=== PATIENT | male | born 1975 | race Two or more races ===

== ENCOUNTER 2024-08-08 14:00 | Outpatient (AMB) | payer MEDICAID, SELFPAY ==
[2024-08-08 14:26] VITALS: BP 126/82; PULSE 98; RESP 18; TEMP 36.8; O2SAT 97; BMI 31.1
--- NOTE | 2024-08-08 14:26 | ORTHONT_ITS ---
Vital signs 08/08/24 14:26 Height 1.68 m Height Method Stated Weight 87.572 kg Weight Measurement Method Standing Scale BMI 31.1 BP 126/82 Blood Pressure Source Automatic Cuff Blood Pressure Location Right Upper Arm Position Sitting Respiration 18 Pulse 98 Pulse Source Monitor Temp 98.2 F Temp Source Temporal Artery Scan Pulse Oximetry (%) 97 Oxygen Delivery Method Room Air Med/Allergies Allergies & Medications Allergies No Known Drug Allergies Allergy (Verified 08/08/24 14:28) Medication Reconciliation celecoxib 100 mg capsule 100 mg PO BID 08/08/24 [History Confirmed 08/08/24] telmisartan 40 mg tablet 40 mg PO QDAY 08/08/24 [History Confirmed 08/08/24] Subjective Visit Visit for: new patient and knee Immunization / Flu Flu Vaccine in the Last 12 Months: No Flu Vaccine Exclusion Criteria: No Exclusion Criteria History of Present Illness Chief complaint: KNEE PAIN Date of injury / onset of symptoms: 4 MONTHS Patient states his knee pain began approx. 4 month ago while working, pain never subsided and gradually worsen. X-rays were done at [place] [facility]. Patient has had fluid drained and given two knee injections which didnt help. Elroy any physical therapy and is currently taking Celecoxib for pain. Personal History Occupation: [employer] Red flag PMH: none Pain Pain level (0-10): 9 Pain duration: ALL DAY Pain location: inside (medial), outside (lateral), anterior and posterior Pain quality: sharp Pain timing: increases with activity Associated signs & symptoms: numbness Ambulatory data Ambulatory device: cane Treatments Number of previous injections: 2 Improvement with previous injections: No Number of Physical Therapy sessions: 0 Improvement with PT: No Improvement with NSAIDS: n/a Review of Systems Review of Systems: All systems negative unless otherwise noted in HPI. Exam Exam Patient is in no acute distress and is cooperative with the examination today. Breathing is nonlabored. In no respiratory distress. Bilateral extremities were evaluated and demonstrates sensation intact to light touch. Palpable pedal pulses are present. No significant edema is present. Bilateral hips were examined. The patient has no pain with log roll of the hips. Internal rotation to 30 degrees and external rotation to 30 degrees is painless. Negative FADIR. The left knee was examined. The left knee is in [varus] alignment. Range of motion from [0-115] degrees. Knee is stable to varus and valgus as well as AP translation with <5mm. Patient has a [negative] McMurrays. There is [no] pain with patellofemoral compression and [no] crepitus noted. The knee is [tender] to palpation [medially]. The right knee was also examined. The right knee is in [varus] alignment. Range of motion from [0-120] degrees. Knee is stable to varus and valgus as well as AP translation with <5mm. Patient has a [negative] McMurrays. There is [no] pain with patellofemoral compression and [no] crepitus noted. The knee is [tender] to palpation [medially]. [facility] from [facility] demonstrate severe osteoarthritis of bilateral knees with varus deformity. Osteophytes are present Assessment and Plan Problem List (1) Degenerative arthritis of knee, bilateral: Status: Acute Plan: Patient is a pleasant 49-year-old male with bilateral knee pain and bilateral knee arthritis. The pain is worse on the right. He is failed conservative treatment occluding injections, anti-inflammatories. He is using a cane and has significant pain and difficulty walking. The pain is affecting his quality life and happiness. We will plan for staged total knee replacement to start on the right. We discussed weight loss in great detail and he is well optimized at this time The nature and purpose of the total knee replacement, alternative method(s) of treatment, the material risks involved, and the possibility of complications were fully explained to the patient. The patient does NOT have any of the following contraindications to TKA: - Active infection of the knee joint, OR - Active systemic bacteremia, OR - Active skin infection or open wound at surgical site, OR - Neuropathic arthritis, OR - Severe, rapidly progressive neurological disease, OR - Severe medical condition that makes risks of surgery outweigh the potential benefit The patient was told the most common risks and complications associated with a total knee replacement include, but are not limited to: blood clots in the leg, fatal pulmonary embolism, dislocation of the prosthesis, intraoperative and postoperative fractures of the femur or tibia, infection, failure of the prosthesis or grafting materials, complications from anesthesia, reactions to blood transfusions, postoperative leg length inequality, instability of the knee replacement, nerve damage or injury, vascular injury, delayed wound healing, infection, other injury or even . In addition, there are risks associated with anesthesia given during this operation. Also, the patient was told that after undergoing a total knee replacement there may still be persistent pain or disability. The patient was informed that the success of this operation in part depends upon the mechanical devices which are going to be implanted and that these devices can fail or malfunction, and may need to be repaired or replaced and there are no guarantees as to the longevity of this device or its parts and that it or its parts could fail prematurely. The patient was also notified that during the course of surgery, there may be a need to use bone graft from donors, and that any bone graft used will be carefully screened for communicable diseases, including AIDS, hepatitis, Jonathan-Creutzfeldt, or other diseases, but despite the screening procedures, there is a small chance that they could contract one of these diseases. Finally, the patient was asked to follow completely and fully with all advice and recommended treatments, and that recovery and ultimate outcome are affected by their compliance with recommended treatment. We discussed the risks, benefits and treatment alternatives, and the patient is interested in proceeding with surgery. We will try to set this up as expeditiously as possible. Office Procedures GNS Level of Care Nursing/Assessment Patient Status: Initial/New Patient Nursing Assessment/Reassesment: Medication Reconciliation, Update PMH in EMR and Vital Signs Coordination of Care: Complex Care and Chronic Disease 1-5, Education Complex Pt/Fam, Consent,records obtained, informed consent, Results/Orders obtained and Staff clarify orders Special Needs: Language special needs New Patient Charge New Patient Point Assignment: 1094 New Patient Point Charge: LEMON GROWER Level 3 ([id number]) Past Medical History Past Medical History Have you ever been diagnosed with any of the following: Cardiology Problems Hypertension: Yes Respiratory Problems Smoking: No Smoking Exposure: No
== END 2024-08-08 14:46 | disposition home or self-care (01) ==
PROVIDERS: PCP Family Medicine; Referring Provider Family Medicine; Supervising Provider Orthopaedic Surgery Adult Reconstructive Orthopaedic Surgery; Visit Provider Orthopaedic Surgery Adult Reconstructive Orthopaedic Surgery
DX: M17.0 Bilateral primary osteoarthritis of knee (principal); M25.562 Pain in left knee; M25.561 Pain in right knee; I10 Essential (primary) hypertension
CPT/HCPCS: 99203; G0463

== ENCOUNTER → 2024-09-05 | Outpatient (CLI) | payer MEDICAID, SELFPAY ==
--- NOTE | 2024-09-05 13:30 | XR_ITS ---
Examination: CT right lower extremity, without contrast. 2-D sagittal reconstructions. 2-D coronal reconstructions. 3-D reconstructions. Date and time of exam:September 05, 2024 1352 hours INDICATIONS: Chronic knee pain years CTDI: vol (mGy):26.7 DLP: (mGycm):951 Technique: Multiple 1.25 mm axial sections of the right lower extremity without intravenous contrast have been obtained. 2-D sagittal and coronal reconstructions have been obtained. 3-D reconstructions have been obtained. Low dose protocols were performed. One or more of the following dose reduction techniques were used; automated exposure control, adjustment of the mA and/or KV according to patient size, use of iterative reconstruction technique. Findings: Moderate osteopenia Mild to moderate narrowing right hip joint, no fracture Advanced right knee tricompartment osteoarthritis, severe narrowing medial joint space No fracture IMPRESSION: Advanced right knee tricompartment osteoarthritis, severe narrowing medial joint space
== END | disposition home or self-care (01) ==
LOC: CCTX 13:26
PROVIDERS: PCP Family Medicine; Referring Provider Orthopaedic Surgery Adult Reconstructive Orthopaedic Surgery; Visit Provider Orthopaedic Surgery Adult Reconstructive Orthopaedic Surgery
DX: M17.11 Unilateral primary osteoarthritis, right knee (principal); M25.861 Other specified joint disorders, right knee
CPT/HCPCS: 73700

== ENCOUNTER 2024-09-16 13:32 | Outpatient (AMB) | payer MEDICAID, SELFPAY ==
[2024-09-16 13:59] VITALS: BP 126/85; PULSE 77; RESP 18; TEMP 36.7; O2SAT 96; BMI 30.7
--- NOTE | 2024-09-16 13:59 | PD.ORTHCLVIS ---
Vital signs 09/16/24 13:59 Height 1.68 m Height Method Stated Weight 86.296 kg Weight Measurement Method Standing Scale BMI 30.7 BP 126/85 H Blood Pressure Source Automatic Cuff Blood Pressure Location Right Upper Arm Position Sitting Respiration 18 Pulse 77 Pulse Source Monitor Temp 98.1 F Temp Source Temporal Artery Scan Pulse Oximetry (%) 96 Oxygen Delivery Method Room Air Med/Allergies Allergies & Medications Allergies No Known Drug Allergies Allergy (Verified 09/16/24 14:01) Medication Reconciliation celecoxib 100 mg capsule 100 mg PO BID 08/08/24 [History Confirmed 09/16/24] telmisartan 40 mg tablet 40 mg PO QDAY 08/08/24 [History Confirmed 09/16/24] Exam Exam Patient is in no acute distress and is cooperative with the examination today. Breathing is nonlabored. In no respiratory distress. Bilateral extremities were evaluated and demonstrates sensation intact to light touch. Palpable pedal pulses are present. No significant edema is present. Bilateral hips were examined. The patient has no pain with log roll of the hips. Internal rotation to 30 degrees and external rotation to 30 degrees is painless. Negative FADIR. The left knee was examined. The left knee is in [varus] alignment. Range of motion from [0-115] degrees. Knee is stable to varus and valgus as well as AP translation with <5mm. Patient has a [negative] McMurrays. There is [no] pain with patellofemoral compression and [no] crepitus noted. The knee is [tender] to palpation [medially]. The right knee was also examined. The right knee is in [varus] alignment. Range of motion from [0-120] degrees. Knee is stable to varus and valgus as well as AP translation with <5mm. Patient has a [negative] McMurrays. There is [no] pain with patellofemoral compression and [no] crepitus noted. The knee is [tender] to palpation [medially]. X-rays from [facility] demonstrate severe osteoarthritis of bilateral knees with varus deformity. Osteophytes are present Assessment and Plan Problem List (1) Degenerative arthritis of knee, bilateral: Status: Acute Plan: Patient is a pleasant 49-year-old male with bilateral knee pain and bilateral knee arthritis. The pain is worse on the right. He is failed conservative treatment occluding injections, anti-inflammatories. He is using a cane and has significant pain and difficulty walking. The pain is affecting his quality life and happiness. We will plan for staged total knee replacement to start on the right. We discussed weight loss in great detail and he is well optimized at this time The nature and purpose of the total knee replacement, alternative method(s) of treatment, the material risks involved, and the possibility of complications were fully explained to the patient. The patient does NOT have any of the following contraindications to TKA: - Active infection of the knee joint, OR - Active systemic bacteremia, OR - Active skin infection or open wound at surgical site, OR - Neuropathic arthritis, OR - Severe, rapidly progressive neurological disease, OR - Severe medical condition that makes risks of surgery outweigh the potential benefit The patient was told the most common risks and complications associated with a total knee replacement include, but are not limited to: blood clots in the leg, fatal pulmonary embolism, dislocation of the prosthesis, intraoperative and postoperative fractures of the femur or tibia, infection, failure of the prosthesis or grafting materials, complications from anesthesia, reactions to blood transfusions, postoperative leg length inequality, instability of the knee replacement, nerve damage or injury, vascular injury, delayed wound healing, infection, other injury or even . In addition, there are risks associated with anesthesia given during this operation. Also, the patient was told that after undergoing a total knee replacement there may still be persistent pain or disability. The patient was informed that the success of this operation in part depends upon the mechanical devices which are going to be implanted and that these devices can fail or malfunction, and may need to be repaired or replaced and there are no guarantees as to the longevity of this device or its parts and that it or its parts could fail prematurely. The patient was also notified that during the course of surgery, there may be a need to use bone graft from donors, and that any bone graft used will be carefully screened for communicable diseases, including AIDS, hepatitis, Jonathan-Creutzfeldt, or other diseases, but despite the screening procedures, there is a small chance that they could contract one of these diseases. Finally, the patient was asked to follow completely and fully with all advice and recommended treatments, and that recovery and ultimate outcome are affected by their compliance with recommended treatment. We discussed the risks, benefits and treatment alternatives, and the patient is interested in proceeding with surgery. We will try to set this up as expeditiously as possible. Office Procedures GNS Level of Care Nursing/Assessment Patient Status: Established Patient Nursing Assessment/Reassesment: Medication Reconciliation, Update PMH in EMR and Vital Signs Coordination of Care: Complex Care and Chronic Disease 1-5, Consent,records obtained, informed consent, Education Simp Pt/Fam, Results/Orders obtained and Staff clarify orders Established Patient Charge Established Patient Point Assignment: 90 Established Patient Point Charge: EP Level 3 (80-115) MA Intake Visit Data Collection New Patient or Established: Established Patient (seen at [facility] within 3 years) Seen by Clinical Staff ONLY (RN/MA): No Behavioral School Counselors Required: Yes Do You Feel Safe at Home: Yes Authorities Contacted: N/A Questionairres Past Medical History Past Medical History Have you ever been diagnosed with any of the following: Cardiology Problems Hypertension: Yes Respiratory Problems Smoking: No Smoking Exposure: No Subjective Immunization / Flu Flu Vaccine in the Last 12 Months: No Flu Vaccine Exclusion Criteria: Refused by Patient History of Present Illness Chief complaint: Bilateral knee pain Patient states his knee pain began approx. 4 month ago while working, pain never subsided and gradually worsened. X-rays were done at [facility]. Patient has had fluid drained and given two knee injections which didnt help. He Elroy any physical therapy and is currently taking Celecoxib for pain. He reports the pain continues to persist and he is using a cane. The pain is affecting his quality life and happiness Review of Systems Review of Systems: All systems negative unless otherwise noted in HPI.
== END 2024-09-16 14:21 | disposition home or self-care (01) ==
LOC: HODSRG 13:32
PROVIDERS: PCP Family Medicine; Referring Provider Family Medicine; Supervising Provider Orthopaedic Surgery Adult Reconstructive Orthopaedic Surgery; Visit Provider Orthopaedic Surgery Adult Reconstructive Orthopaedic Surgery
DX: M17.0 Bilateral primary osteoarthritis of knee (principal); M25.562 Pain in left knee; M25.561 Pain in right knee; I10 Essential (primary) hypertension
CPT/HCPCS: 99213; G0463

== ENCOUNTER 2024-09-22 08:30 | Day surgery (SDC) | payer MEDICAID, SELFPAY ==
--- NOTE | 2024-09-19 11:32 | EKG_ITS ---
[facility] Test Date: 2024-09-19 Pat Name: LULU MARCELINO Department: Room: - Gender: Male [employer] Operator: MARTHA : 1975 Requested By: Moses Stanley Order Number: [id number] Reading MD: Moses Stanley Measurements Intervals [place] Rate: 66 P: 25 MI: 147 QRS: -26 QRSD: 101 T: 29 QT: 361 QTc: 380 Interpretive Statements SINUS RHYTHM WITH SINUS ARRHYTHMIA BORDERLINE LEFT AXIS DEVIATION NONSPECIFIC T-WAVE ABNORMALITY No previous ECG available for comparison /store/S0/[id number]/[id number].pdf
[2024-09-19 13:16] LABS: Basophils # (Auto) 0.1 Thou/mm3 (0.0-0.2); Basophils % (Auto) 1 % (0-2.5); Eosinophils # (Auto) 0.3 Thou/mm3 (0.0-0.5); Eosinophils % (Auto) 3 % (0-10); Immature Granulocytes % (Auto) 0 % (0-0); Immature Granulocytes Auto 0.02 Thou/mm3 (0.00-0.00); Lymphocytes # (Auto) 3.1 Thou/mm3 (1.0-4.8); Lymphocytes % (Auto) 36 % (10-50); Mean Corpuscular Hemoglobin 27.4 pg (25.0-35.0); Mean Corpuscular Volume 86 fL (80-100); Monocytes # (Auto) 0.5 Thou/mm3 (0.0-0.8); Monocytes % (Auto) 6 % (0-12); Neutrophils # (Auto) 4.6 Thou/mm3 (1.8-7.7); Neutrophils % (Auto) 54 % (37-80); Nucleated Red Blood Cell % 0 /100 WBC (0); Platelet Count 257 Thou/mm3 (140-440); RDW Standard Deviation 43.1 fL (35.1-43.9); Red Blood Count 5.85 Miln/mm3 (4.50-5.90); White Blood Count 8.5 Thou/mm3 (3.8-10.6)
[2024-09-19 13:30] LABS: Partial Thromboplastin Time 25.6 Seconds (22.0-36.0); Prothrombin Time 10.8 Seconds (9.0-12.2)
[2024-09-19 13:39] LABS: Alanine Aminotransferase 17 U/L (10-49); Albumin, Serum 4.8 gm/dL (3.5-5.0); Albumin/Globulin Ratio 1.9 (1.2-2.2); Alkaline Phosphatase 157 U/L (46-116); Anion Gap 9 (7-16); Aspartate Amino Transferase 10 U/L (0-34); BUN/Creatinine Ratio 14 Ratio (12-20); Bilirubin,Total 0.7 mg/dL (0.3-1.2); Blood Urea Nitrogen 14 mg/dL (9-23); Calcium 9.8 mg/dL (8.3-10.6); Calcium (Corrected) 9.8 mg/dL (8.5-10.1); Carbon Dioxide 28.7 mMol/L (20.0-31.0); Chloride 103 mMol/L (98-107); Globulin 2.5 gm/dL (2.3-3.5); Glucose 153 mg/dL (74-106); Osmolality,Calculated 284 (275-295); Sodium 141 mMol/L (136-145); Total Protein 7.3 gm/dL (5.7-8.2); eGFR > 60 See Note
[2024-09-22] VITALS (11 sets, daily range): BP systolic 96–122; BP diastolic 60–84; PULSE 65–91; RESP 15–20; TEMP 36.1–36.4; O2SAT 96–100; BMI 30.2; BMI 15.0
[2024-09-22] MEDS: PREGABALIN 75 MG CAPSULE PO (09:05)
[2024-09-22] MEDS: ACETAMINOPHEN 325 MG TABLET 650 MG PO (09:05)
[2024-09-22] MEDS: MELOXICAM 7.5 MG TABLET PO (09:05)
[2024-09-22] MEDS: RINGERS LACTATED 1000 ML 1,000 ML 20 ML IV (09:06)
--- NOTE | 2024-09-22 13:24 | ESOP_ITS ---
Date of Procedure 09/22/24 Pre Op Diagnosis right knee osteoarthritis Post Op Diagnosis right knee osteoarthritis Procedure right total knee replacement cementless Findings full thickness cartilage loss and osteophytes Procedure Description Indication: The patient is a 49 year old who has a long history of right knee pain. X-rays show degenerative arthritis involving the knee. Over the past several years the patient has had increasing pain, progressive limitation in function. He has failed conservative measures including activity modification, physical therapy, injections, anti-inflammatories, and assistive devices. After a lengthy discussion of the risks and benefits, the patient presents now for total knee replacement. The nature and purpose of the total knee replacement, alternative method(s) of treatment, the material risks involved, and the possibility of complications were fully explained to the patient. The patient was told the most common risks and complications associated with a total knee replacement include, but are not limited to blood clots in the leg, fatal pulmonary embolism, dislocation of the prosthesis, intraoperative and postoperative fractures of the femur or tibia, infection, failure of the prosthesis or grafting materials, complications from anesthesia, reactions to blood transfusions, postoperative leg length inequality, instability of the knee replacement, nerve damage or injury, vascular injury, delayed wound healing, infections, other injury or even . In addition, there are risks associated with anesthesia given during this operation, temporary or permanent numbness on the skin lateral to the incision can be a complication unique to total knee surgery, and kneeling can be painful after knee replacement surgery. Also, the patient was told that after undergoing a total knee replacement there may still be pain or disability. We discussed with the patient that we will be using a robot-assisted technology. We discussed that there is a possibility of converting to manual instrumentation. The patient was informed that the success of this operation in part depends upon the mechanical devices which are going to be implanted and that these devices can fail or malfunction, and may need to be repaired or replaced and there are no guarantees as to the longevity of this device or its part and that it or its parts could fail prematurely. Finally, the patient was asked to follow completely and fully with all advice and recommended treatments, and that recovery and ultimate outcome are affected by their compliance with recommended treatment. Surgical technique: Patient was marked and consented in the pre-operative area. The patient was brought to the operating room and placed on the operating table in a supine position. Prior to positioning, a timeout procedure was performed between the surgeon, the anesthesiologist, and the nursing staff where the patient and the operative side were identified and confirmed. After adequate general anesthetic was obtained, the right lower extremity was prepped and draped in the usual sterile fashion. A weight based dose of Cefazolin were administered within 1 hour prior to incision. The robot was preregistered and calirated before the incision. The extremity was exsanguinated with an esmarch badge and tourniquet inflated to 250mmHg. A midline incision was made. A median parapatellar arthrotomy was made. The patella was subluxed laterally. A medial release was performed to expose the medial tibia. His femoral and tibial pins were placed through an intra incisional manner for both cases. Every effort was made to ensure that the distalmost aspect of the pin was hung in the second cortex. The arrays were then tightened several times to ensure that it was fixed for the remainder of the case. Both femoral and tibial checkpoints were then placed. We then went through the registration process of the bone. We then assessed the knee deformity and attempted to correct it. We also used the robot to aid in judging laxity in both extension and flexion. Final based on laxity and alignment we changed the preoperative assessment to obtain proper proper implant positioning and to correct deformity. Attention was then placed to the tibia. We made a tibial cut using the robot ensuring that both the MCL and the patella tendon were protected with retractors. We then went to the femur and made the posterior cut followed by the anterior cut and the anterior chamfer. The bone was then removed and we made a distal femur cut and a posterior chamfer cut. We verified all cuts. A trial reduction was performed with a size 5 femoral component and a size 5 keeled tibial component. The patella tracked centrally, and no lateral retinacular release was necessary. The trial implants were removed. The arrays, pins, and checkpoints were all removed. We performed a verification that all pins were removed. The cut bone surfaces were lavaged. A size 5 right femoral component, a size 5 keeled tibial component were impacted into position. The knee was felt to be well balanced in the sagittal and coronal plane. The final 5x13 mm cruciate- substituting articular insert was impacted into the tibial tray. The knee was brought out to full extension, flexed up to 120 degrees. It was stable to varus and valgus stress and appropriately balanced in flexion and extension. The wounds were copiously irrigated following deflation of tourniquet. The medial retinaculum was reapproximated with #1 vicryl and quill. The subcutaneous tissues were closed with 0 and 2-0 interrupted Vicryl. The skin was closed with 3-0 Monofilament V loc suture. A sterile dressing was applied. The patient was transferred to a bed and brought to recovery in stable condition. The patient tolerated the procedure well. There were no intraoperative complications. Sponge and needle counts were correct times 2. As the attending surgeon, Kerry rob I was present and performed the entire operation. Grafts/Implants Size 5 CR Femur Size 5 Tibia 13mm poly CS Anesthesia none Implants diana triathlon Pathology / specimen None Pathology comment: none Estimated Blood Loss 150 Condition Stable Disposition same day Surgeon Clyde Plaza MD Surgical Staff Operation Date: 09/22/24 13:15 Case Staff Anesthesiologist: Tim Bains RN First Assistant: Dorothy Lundy
--- NOTE | 2024-09-22 13:29 | XR_ITS ---
Examination: Right knee 2 views Technique one AP lateral right knee 2 views Exam date and time: September 22, 2024 1441 hours INDICATIONS: Postop knee replacement today. FINDINGS: Moderate osteopenia Total right knee arthroplasty. Satisfactory alignment No fracture IMPRESSION: Total right knee arthroplasty with satisfactory alignment
--- NOTE | 2024-09-22 13:55 | SUR.PHASEI ---
1355 Patient arrived to recovery resting comfortably in [facility], drowsy and able to arouse with verbal prompting, on oxygen 6L via oxy mask, breathing unlabored, vital signs stable, denies pain, dressing intact to right knee; prineo, abd, webril, yuval wraps, no bleeding noted, lung sounds clear upon auscultation, bilateral dorsalis pedis pulses present when palpated, patient has good circulation to right lower extremity; skin is warm to touch and skin is normal color for patient, report received from Daisy HERRERA and Dr. Bains
[2024-09-22] MEDS: HYDROmorphone INJ 2 MG/ML VIAL 0.4 MG IV (14:19)
[2024-09-22] MEDS: ACETAMINOPHEN IVPB 1,000 MG/100 ML VIAL 250 MG IV (14:21)
--- NOTE | 2024-09-22 14:35 | SUR.PHASEII ---
1788 patient ate a jello, tolerated well
[2024-09-22] MEDS: oxyCODONE HCL 5 MG IR TAB PO (14:38)
--- NOTE | 2024-09-22 14:47 | SUR.PHASEII ---
1447 XRAY complete per MD order
--- NOTE | 2024-09-22 14:50 | SUR.PHASEII ---
patients at bedside with patient
--- NOTE | 2024-09-22 15:27 | SUR.PHASEII ---
1527 Patient cleared by physical therapist Koki to proceed with discharge
--- NOTE | 2024-09-22 16:04 | SUR.PHASEII ---
1604 Patient meets discharge criteria from recovery, awake and alert, breathing unlabored, vital signs stable, per patient his pain is tolerable-give pain pill, dressing intact; no bleeding noted, patient drinking water; denies nausea, patient assisted with dressing into his clothing by his , discharge instructions given with the assistance of the telephone appeals court associate justice Pino ID#[id number] to patient and patients daughter/, daughter signed discharge instructions. Patient given all his belongings prior to discharge, transported via wheelchair and left in a private vehicle.
--- NOTE | 2024-09-23 14:27 | ESPR_ITS ---
Addendum Progress Note Addendum Date of report being addended: 09/23/24 Narrative: Mustapha is a 49-year-old male who is under my care. He underwent surgery on 09/22/2024. Please excuse his daughter and her kids from school from 09/22/2024- 09/26/2024 due to his surgery.
== END 2024-09-22 16:04 | disposition home or self-care (01) ==
PROVIDERS: Anesthesiology; PCP Family Medicine; Referring Provider Orthopaedic Surgery Adult Reconstructive Orthopaedic Surgery; Visit Provider Orthopaedic Surgery Adult Reconstructive Orthopaedic Surgery
PROC: (CPT 27447; principal; 2024-09-22 13:00)
DX: M17.11 Unilateral primary osteoarthritis, right knee (principal); Z01.810 Encounter for preprocedural cardiovascular examination
CPT/HCPCS: 27447; 20985; 36415; 73560; 80053; 85025; 85610; 85730; 93005; J0131; J0171; J0690; J1100; J1885; J2250; J2405; J2704; J2795; J3010; J3490; J7120; A9270

== ENCOUNTER 2024-10-07 10:15 | Outpatient (AMB) | payer MEDICAID, SELFPAY ==
--- NOTE | 2024-10-07 10:26 | ORTHONT_ITS ---
Vital signs 10/07/24 10:27 Height 1.68 m Height Method Stated Weight 84.623 kg Weight Measurement Method Standing Scale BMI 29.9 BP 117/74 Blood Pressure Source Automatic Cuff Blood Pressure Location Left Upper Arm Position Sitting Respiration 18 Pulse 80 Pulse Source Monitor Temp 97.5 F Temp Source Temporal Artery Scan Pulse Oximetry (%) 92 L Oxygen Delivery Method Room Air Med/Allergies Allergies & Medications Allergies No Known Drug Allergies Allergy (Verified 10/07/24 10:27) Medication Reconciliation celecoxib 100 mg capsule 100 mg PO BID PRN Pain 08/08/24 [History Confirmed 0 10/07/24] telmisartan 40 mg tablet 40 mg PO QDAY 08/08/24 [History Confirmed 10/07/24] dapagliflozin propanediol 10 mg tablet (Farxiga) 10 mg PO QDAY 09/19/24 [History Confirmed 10/07/24] esomeprazole magnesium 20 mg capsule,delayed release (Nexium) 20 mg PO QDAY 09/19/24 [History Confirmed 10/07/24] hydroxyzine HCl 10 mg tablet 10 mg PO HS PRN Insomnia 09/19/24 [History Confirmed 10/07/24] acetaminophen 500 mg tablet (Acetaminophen Extra Strength) 1,000 mg (2 x 500 mg) PO Q6H PRN pain #90 tabs 09/22/24 [Rx Confirmed 10/07/24] aspirin 81 mg tablet,delayed release 81 mg PO BID #60 tabs 09/22/24 [Rx Confirmed 10/07/24] doxycycline hyclate 100 mg tablet 100 mg PO BID #14 tabs 09/22/24 [Rx Confirmed 10/07/24] gabapentin 300 mg capsule 300 mg PO .qhs #30 caps 09/22/24 [Rx Confirmed 10/07/24] oxycodone 5 mg tablet 5 mg PO Q6H PRN pain #28 tabs 09/22/24 [Rx Confirmed 10/07/24] sennosides 8.6 mg-docusate sodium 50 mg tablet (Senna-S) 1 tab-cap PO QDAY #30 tabs 09/22/24 [Rx Confirmed 10/07/24] Exam Exam Patient is in no acute distress and is cooperative with the examination today. Breathing is nonlabored. In no respiratory distress. Bilateral extremities were evaluated and demonstrates sensation intact to light touch. Palpable pedal pulses are present. No significant edema is present. Bilateral hips were examined. The patient has no pain with log roll of the hips. Internal rotation to 30 degrees and external rotation to 30 degrees is painless. Negative FADIR. The left knee was examined. The left knee is in [varus] alignment. Range of motion from [0-115] degrees. Knee is stable to varus and valgus as well as AP translation with <5mm. Patient has a [negative] McMurrays. There is [no] pain with patellofemoral compression and [no] crepitus noted. The knee is [tender] to palpation [medially]. Right knee incision is c/d/i. ROM is 0-100 Assessment and Plan Problem List (1) Degenerative arthritis of knee, bilateral: Status: Acute Plan: Patient is a pleasant 49-year-old male with bilateral knee pain and bilateral knee arthritis. He is doing well status post right total knee replacement. He has minimal pain but is doing well Office Procedures GNS Level of Care Nursing/Assessment Patient Status: Established Patient Nursing Assessment/Reassesment: Medication Reconciliation, Update PMH in EMR and Vital Signs Coordination of Care: Complex Care and Chronic Disease 1-5, Education Complex Pt/Fam, Consent,records obtained, informed consent, Results/Orders obtained and Staff clarify orders Special Needs: Language special needs Established Patient Charge Established Patient Point Assignment: 95 Established Patient Point Charge: EP Level 3 (80-115) MA Intake Visit Data Collection New Patient or Established: Established Patient (seen at [facility] within 3 years) Reason for Visit:: 2 WEEK R TKA Seen by Clinical Staff ONLY (RN/MA): No Nursing Information Systems Coordinator Required: Yes PCP or OBGYN visit in last 3 months: Yes Hx Now: No Do You Feel Safe at Home: Yes Authorities Contacted: N/A Questionairres Past Medical History Past Medical History Have you ever been diagnosed with any of the following: Neurological Problems Seizures: No Cardiology Problems Hypercholesterolemia: Yes Congestive Heart Failure: No Edema: Yes (knees) Hypertension: Yes Respiratory Problems Chronic Obstructive Pulmonary Disease (COPD): No Smoking: No Smoking Exposure: No Stomache/Intestinal Problems Hepatitis: No Genital/Urinary Problems Renal Disease: No Musculoskeletal Problems Arthritis: Yes Fractures: Yes (right hand) Endocrine Problems Diabetes Mellitus Type 1: No Diabetes Mellitus Type 2: No Psychologic Problems Anxiety: Yes Other Problems Hospitalization: No Shingles: No Blood Transfusions: No Blood Transfusion Reaction: No Anesthesia Reactions: No Chicken Pox: Yes Measles: Yes Cancer: No Subjective Visit Visit for: follow up visit and knee Immunization / Flu Flu Vaccine in the Last 12 Months: No Flu Vaccine Exclusion Criteria: No Exclusion Criteria History of Present Illness Chief complaint: r tka Patient is doing well postop. He is 2 weeks postop. Pain Pain level (0-10): 3 Pain duration: ON AND OFF Pain location: inside (medial), outside (lateral), anterior and posterior Pain quality: sharp and aching Pain timing: increases with activity Associated signs & symptoms: none Ambulatory data Ambulatory device: walker Treatments Improvement with previous injections: No Improvement with PT: No Improvement with NSAIDS: no Review of Systems Review of Systems: All systems negative unless otherwise noted in HPI.
[2024-10-07 10:27] VITALS: BP 117/74; PULSE 80; RESP 18; TEMP 36.4; O2SAT 92; BMI 29.9
== END 2024-10-07 10:38 | disposition home or self-care (01) ==
LOC: HODSRG 10:15
PROVIDERS: PCP Family Medicine; Referring Provider Family Medicine; Supervising Provider Orthopaedic Surgery Adult Reconstructive Orthopaedic Surgery; Visit Provider Orthopaedic Surgery Adult Reconstructive Orthopaedic Surgery
DX: M17.0 Bilateral primary osteoarthritis of knee (principal); M25.562 Pain in left knee; M25.561 Pain in right knee; Z96.651 Presence of right artificial knee joint; I10 Essential (primary) hypertension; E78.00 Pure hypercholesterolemia, unspecified
CPT/HCPCS: 99213; G0463

== ENCOUNTER 2024-11-04 10:10 | Outpatient (AMB) | payer MEDICAID, SELFPAY ==
--- NOTE | 2024-11-04 10:45 | ORTHONT_ITS ---
Vital signs 11/04/24 10:46 Height 1.68 m Height Method Stated Weight 82.724 kg Weight Measurement Method Standing Scale BMI 29.2 BP 130/81 Blood Pressure Source Automatic Cuff Blood Pressure Location Right Upper Arm Position Sitting Respiration 18 Pulse 68 Pulse Source Monitor Temp 97.5 F Temp Source Temporal Artery Scan Pulse Oximetry (%) 98 Oxygen Delivery Method Room Air Med/Allergies Allergies & Medications Allergies No Known Drug Allergies Allergy (Verified 11/04/24 10:47) Medication Reconciliation celecoxib 100 mg capsule 100 mg PO BID PRN Pain 08/08/24 [History Confirmed ] telmisartan 40 mg tablet 40 mg PO QDAY 08/08/24 [History Confirmed 11/04/24] dapagliflozin propanediol 10 mg tablet (Farxiga) 10 mg PO QDAY 09/19/24 [History Confirmed 11/04/24] esomeprazole magnesium 20 mg capsule,delayed release (Nexium) 20 mg PO QDAY 09/19/24 [History Confirmed 11/04/24] hydroxyzine HCl 10 mg tablet 10 mg PO HS PRN Insomnia 09/19/24 [History Confirmed 11/04/24] acetaminophen 500 mg tablet (Acetaminophen Extra Strength) 1,000 mg (2 x 500 mg) PO Q6H PRN pain #90 tabs 09/22/24 [Rx Confirmed 11/04/24] aspirin 81 mg tablet,delayed release 81 mg PO BID #60 tabs 09/22/24 [Rx Confirmed 11/04/24] doxycycline hyclate 100 mg tablet 100 mg PO BID #14 tabs 09/22/24 [Rx Confirmed 11/04/24] gabapentin 300 mg capsule 300 mg PO .qhs #30 caps 09/22/24 [Rx Confirmed 11/04/24] oxycodone 5 mg tablet 5 mg PO Q6H PRN pain #28 tabs 09/22/24 [Rx Confirmed 11/04/24] sennosides 8.6 mg-docusate sodium 50 mg tablet (Senna-S) 1 tab-cap PO QDAY #30 tabs 09/22/24 [Rx Confirmed 11/04/24] Exam Exam Patient is in no acute distress and is cooperative with the examination today. Breathing is nonlabored. In no respiratory distress. Bilateral extremities were evaluated and demonstrates sensation intact to light touch. Palpable pedal pulses are present. No significant edema is present. Bilateral hips were examined. The patient has no pain with log roll of the hips. Internal rotation to 30 degrees and external rotation to 30 degrees is painless. Negative FADIR. The left knee was examined. The left knee is in [varus] alignment. Range of motion from [0-115] degrees. Knee is stable to varus and valgus as well as AP translation with <5mm. Patient has a [negative] McMurrays. There is [no] pain with patellofemoral compression and [no] crepitus noted. The knee is [tender] to palpation [medially]. Right knee incision is c/d/i. ROM is 0-100 Assessment and Plan Problem List (1) Degenerative arthritis of knee, bilateral: Status: Acute Plan: Patient is a pleasant 49-year-old male with bilateral knee pain and bilateral knee arthritis. He is doing well status post right total knee replacement. He has minimal pain but is doing well Office Procedures GNS Level of Care Nursing/Assessment Patient Status: Established Patient Nursing Assessment/Reassesment: Medication Reconciliation, Update PMH in EMR and Vital Signs Coordination of Care: Complex Care and Chronic Disease 1-5, Education Complex Pt/Fam, Consent,records obtained, informed consent, Results/Orders obtained and Staff clarify orders Special Needs: Language special needs Established Patient Charge Established Patient Point Assignment: 95 Established Patient Point Charge: EP Level 3 (80-115) MA Intake Visit Data Collection New Patient or Established: Established Patient (seen at [facility] within 3 years) Reason for Visit:: 6 WK POST OP TKA Seen by Clinical Staff ONLY (RN/MA): No Verbal consent obtained for Telemed visit?: No Manager Supply Chain Planning Required: Yes PCP or OBGYN visit in last 3 months: Yes Hx Now: No Do You Feel Safe at Home: Yes Authorities Contacted: N/A Questionairres Past Medical History Past Medical History Have you ever been diagnosed with any of the following: Neurological Problems Seizures: No Cardiology Problems Hypercholesterolemia: Yes Congestive Heart Failure: No Edema: Yes (knees) Hypertension: Yes Respiratory Problems Chronic Obstructive Pulmonary Disease (COPD): No Smoking: No Smoking Exposure: No Stomache/Intestinal Problems Hepatitis: No Genital/Urinary Problems Renal Disease: No Musculoskeletal Problems Arthritis: Yes Fractures: Yes (right hand) Endocrine Problems Diabetes Mellitus Type 1: No Diabetes Mellitus Type 2: No Psychologic Problems Anxiety: Yes Other Problems Hospitalization: No Shingles: No Blood Transfusions: No Blood Transfusion Reaction: No Anesthesia Reactions: No Chicken Pox: Yes Measles: Yes Cancer: No Subjective Visit Visit for: post op #2 and knee Immunization / Flu Flu Vaccine in the Last 12 Months: No Flu Vaccine Exclusion Criteria: No Exclusion Criteria History of Present Illness Chief complaint: 6 WK POST OP TKA Patient is doing well postop. He is doing well 6 weeks postop. Pain Pain level (0-10): 0 Pain duration: ON AND OFF Pain location: inside (medial), outside (lateral), anterior and posterior Pain quality: sharp and aching Pain timing: increases with activity Associated signs & symptoms: none Ambulatory data Ambulatory device: cane Treatments Improvement with previous injections: No Improvement with PT: No Improvement with NSAIDS: no Review of Systems Review of Systems: All systems negative unless otherwise noted in HPI.
[2024-11-04 10:46] VITALS: BP 130/81; PULSE 68; RESP 18; TEMP 36.4; O2SAT 98; BMI 29.2
== END 2024-11-04 11:14 | disposition home or self-care (01) ==
LOC: HODSRG 10:10
PROVIDERS: PCP Family Medicine; Referring Provider Family Medicine; Supervising Provider Orthopaedic Surgery Adult Reconstructive Orthopaedic Surgery; Visit Provider Orthopaedic Surgery Adult Reconstructive Orthopaedic Surgery
DX: M17.0 Bilateral primary osteoarthritis of knee (principal); M25.562 Pain in left knee; M25.561 Pain in right knee; Z96.651 Presence of right artificial knee joint; I10 Essential (primary) hypertension; E78.00 Pure hypercholesterolemia, unspecified
CPT/HCPCS: 99213; G0463

== ENCOUNTER 2025-01-01 09:04 | Outpatient (AMB) | payer MEDICAID, SELFPAY ==
[2025-01-01 09:45] VITALS: BP 107/74; PULSE 72; RESP 18; TEMP 36.4; O2SAT 97; BMI 29.9
--- NOTE | 2025-01-01 09:45 | PD.ORTHCLVIS ---
Vital signs 01/01/25 09:45 Height 1.68 m Height Method Stated Weight 84.567 kg Weight Measurement Method Standing Scale BMI 29.9 BP 107/74 Blood Pressure Source Automatic Cuff Blood Pressure Location Right Upper Arm Position Sitting Respiration 18 Pulse 72 Pulse Source Monitor Temp 97.5 F Temp Source Oral Pulse Oximetry (%) 97 Oxygen Delivery Method Room Air Med/Allergies Allergies & Medications Allergies No Known Drug Allergies Allergy (Verified 01/01/25 09:47) Medication Reconciliation celecoxib 100 mg capsule 100 mg PO BID PRN Pain 08/08/24 [History Confirmed 01/01/25] telmisartan 40 mg tablet 40 mg PO QDAY 08/08/24 [History Confirmed 01/01/25] dapagliflozin propanediol 10 mg tablet (Farxiga) 10 mg PO QDAY 09/19/24 [History Confirmed 01/01/25] esomeprazole magnesium 20 mg capsule,delayed release (Nexium) 20 mg PO QDAY 09/19/24 [History Confirmed 01/01/25] hydroxyzine HCl 10 mg tablet 10 mg PO HS PRN Insomnia 09/19/24 [History Confirmed 01/01/25] acetaminophen 500 mg tablet (Acetaminophen Extra Strength) 1,000 mg (2 x 500 mg) PO Q6H PRN pain #90 tabs 09/22/24 [Rx Confirmed 01/01/25] aspirin 81 mg tablet,delayed release 81 mg PO BID #60 tabs 09/22/24 [Rx Confirmed 01/01/25] doxycycline hyclate 100 mg tablet 100 mg PO BID #14 tabs 09/22/24 [Rx Confirmed 01/01/25] gabapentin 300 mg capsule 300 mg PO .qhs #30 caps 09/22/24 [Rx Confirmed 01/01/25] oxycodone 5 mg tablet 5 mg PO Q6H PRN pain #28 tabs 09/22/24 [Rx Confirmed 01/01/25] sennosides 8.6 mg-docusate sodium 50 mg tablet (Senna-S) 1 tab-cap PO QDAY #30 tabs 09/22/24 [Rx Confirmed 01/01/25] Exam Exam Patient is in no acute distress and is cooperative with the examination today. Breathing is nonlabored. In no respiratory distress. Bilateral extremities were evaluated and demonstrates sensation intact to light touch. Palpable pedal pulses are present. No significant edema is present. Bilateral hips were examined. The patient has no pain with log roll of the hips. Internal rotation to 30 degrees and external rotation to 30 degrees is painless. Negative FADIR. The left knee was examined. The left knee is in [varus] alignment. Range of motion from [0-115] degrees. Knee is stable to varus and valgus as well as AP translation with <5mm. Patient has a [negative] McMurrays. There is [no] pain with patellofemoral compression and [no] crepitus noted. The knee is [tender] to palpation [medially]. Right knee incision is c/d/i. ROM is 0-100 X-rays from [place] [facility] demonstrate severe joint space narrowing and significant varus deformity with osteophytes on the left knee Assessment and Plan Problem List (1) Degenerative arthritis of knee, bilateral: Status: Acute Plan: Patient is a pleasant 49-year-old male with bilateral knee pain and bilateral knee arthritis. He is doing well status post right total knee replacement. He reports he is doing well from his right total knee replacement but the left knee is affecting his quality life and happiness. He has [id number]. We thus consider total knee replacement is a reasonable option. Please complete obliteration of the medial joint space. The nature and purpose of the total knee replacement, alternative method(s) of treatment, the material risks involved, and the possibility of complications were fully explained to the patient. The patient does NOT have any of the following contraindications to TKA: - Active infection of the knee joint, OR - Active systemic bacteremia, OR - Active skin infection or open wound at surgical site, OR - Neuropathic arthritis, OR - Severe, rapidly progressive neurological disease, OR - Severe medical condition that makes risks of surgery outweigh the potential benefit The patient was told the most common risks and complications associated with a total knee replacement include, but are not limited to: blood clots in the leg, fatal pulmonary embolism, dislocation of the prosthesis, intraoperative and postoperative fractures of the femur or tibia, infection, failure of the prosthesis or grafting materials, complications from anesthesia, reactions to blood transfusions, postoperative leg length inequality, instability of the knee replacement, nerve damage or injury, vascular injury, delayed wound healing, infection, other injury or even . In addition, there are risks associated with anesthesia given during this operation. Also, the patient was told that after undergoing a total knee replacement there may still be persistent pain or disability. The patient was informed that the success of this operation in part depends upon the mechanical devices which are going to be implanted and that these devices can fail or malfunction, and may need to be repaired or replaced and there are no guarantees as to the longevity of this device or its parts and that it or its parts could fail prematurely. The patient was also notified that during the course of surgery, there may be a need to use bone graft from donors, and that any bone graft used will be carefully screened for communicable diseases, including AIDS, hepatitis, Jonathan-Creutzfeldt, or other diseases, but despite the screening procedures, there is a small chance that they could contract one of these diseases. Finally, the patient was asked to follow completely and fully with all advice and recommended treatments, and that recovery and ultimate outcome are affected by their compliance with recommended treatment. We discussed the risks, benefits and treatment alternatives, and the patient is interested in proceeding with surgery. We will try to set this up as expeditiously as possible. Office Procedures GNS Level of Care Nursing/Assessment Patient Status: Established Patient Nursing Assessment/Reassesment: Medication Reconciliation, Update PMH in EMR and Vital Signs Coordination of Care: Complex Care and Chronic Disease 1-5, Education Complex Pt/Fam, Consent,records obtained, informed consent, Results/Orders obtained and Staff clarify orders Special Needs: Language special needs Established Patient Charge Established Patient Point Assignment: 95 Established Patient Point Charge: EP Level 3 (80-115) MA Intake Visit Data Collection New Patient or Established: Established Patient (seen at [facility] within 3 years) Reason for Visit:: 2 MONTH FOLLOW UP Seen by Clinical Staff ONLY (RN/MA): No Verbal consent obtained for Telemed visit?: No Carpenter And Joiner Required: Yes PCP or OBGYN visit in last 3 months: Yes Hx Now: No Do You Feel Safe at Home: Yes Authorities Contacted: N/A Questionairres Past Medical History Past Medical History Have you ever been diagnosed with any of the following: Neurological Problems Seizures: No Cardiology Problems Hypercholesterolemia: Yes Congestive Heart Failure: No Edema: Yes (knees) Hypertension: Yes Respiratory Problems Chronic Obstructive Pulmonary Disease (COPD): No Smoking: No Smoking Exposure: No Stomache/Intestinal Problems Hepatitis: No Genital/Urinary Problems Renal Disease: No Musculoskeletal Problems Arthritis: Yes Fractures: Yes (right hand) Endocrine Problems Diabetes Mellitus Type 1: No Diabetes Mellitus Type 2: No Psychologic Problems Anxiety: Yes Other Problems Hospitalization: No Shingles: No Blood Transfusions: No Blood Transfusion Reaction: No Anesthesia Reactions: No Chicken Pox: Yes Measles: Yes Cancer: No Subjective Visit Visit for: follow up visit and knee Immunization / Flu Flu Vaccine in the Last 12 Months: Yes Flu Vaccine Exclusion Criteria: Already Received History of Present Illness Chief complaint: 2 month post op follow up Patient is doing well postop. He is doing well And is 3 months postop from his right total knee replacement. He Reports the left knee pain is actually what is affecting his quality life and happiness right now. This has been ongoing for several years and he has significant varus deformity. He has tried home exercises, physical therapy, and ibuprofen Pain Pain level (0-10): 2 Pain duration: ALL DAY Pain location: inside (medial) Pain quality: dull and aching Pain timing: increases with activity Associated signs & symptoms: none Ambulatory data Ambulatory device: cane Treatments Improvement with previous injections: No Improvement with PT: No Improvement with NSAIDS: no Review of Systems Review of Systems: All systems negative unless otherwise noted in HPI.
== END 2025-01-01 09:57 | disposition home or self-care (01) ==
LOC: HODSRG 09:04
PROVIDERS: PCP Family Medicine; Referring Provider Family Medicine; Supervising Provider Orthopaedic Surgery Adult Reconstructive Orthopaedic Surgery; Visit Provider Orthopaedic Surgery Adult Reconstructive Orthopaedic Surgery
DX: M17.0 Bilateral primary osteoarthritis of knee (principal); M25.562 Pain in left knee; M25.561 Pain in right knee; Z96.651 Presence of right artificial knee joint; I10 Essential (primary) hypertension; E78.00 Pure hypercholesterolemia, unspecified
CPT/HCPCS: 99213; G0463

== ENCOUNTER → 2025-02-03 | Outpatient (CLI) | payer MEDICAID, SELFPAY ==
--- NOTE | 2025-02-03 14:28 | XR_ITS ---
Examination: AP bilateral knees single view PA left knee lateral left knee axial left knee 3 views TECHNIQUE: Bilateral AP knees standing single view Standing PA flexion left knee, standing lateral left knee, axial left knee 3 views total 4 views Exam date and time: February 03, 2025 1532 hours INDICATIONS: Left knee pain one year. FINDINGS: Moderate osteopenia Total right knee arthroplasty with satisfactory alignment Advanced narrowing medial joint space left knee Significant osteoarthritis lateral and patellofemoral joints left knee IMPRESSION: Advanced left knee tricompartment osteoarthritis
--- NOTE | 2025-02-03 14:28 | XR_ITS ---
Examination: CT left lower extremity, without contrast. 2-D sagittal reconstructions. 2-D coronal reconstructions. 3-D reconstructions. Date and time of exam:February 03, 2025 1514 hours INDICATIONS: Diagnosis unilateral left knee osteoarthritis left knee pain one year CTDI: vol (mGy):10.8 DLP: (mGycm):772 Technique: Multiple 1.25 mm axial sections of the left lower extremity without intravenous contrast have been obtained. 2-D sagittal and coronal reconstructions have been obtained. 3-D reconstructions have been obtained. Low dose protocols were performed. One or more of the following dose reduction techniques were used; automated exposure control, adjustment of the mA and/or KV according to patient size, use of iterative reconstruction technique. Findings: Moderate osteopenia Mild to moderate narrowing left hip joint No left hip fracture Severe narrowing medial joint space left knee Significant osteoarthritis lateral patellofemoral joints IMPRESSION: Severe narrowing medial joint space left knee Significant osteoarthritis lateral patellofemoral joints
== END | disposition home or self-care (01) ==
LOC: CCTX 14:00
PROVIDERS: PCP Family Medicine; Referring Provider Orthopaedic Surgery Adult Reconstructive Orthopaedic Surgery; Visit Provider Orthopaedic Surgery Adult Reconstructive Orthopaedic Surgery
DX: M17.12 Unilateral primary osteoarthritis, left knee (principal); M25.862 Other specified joint disorders, left knee
CPT/HCPCS: 73564; 73700

== ENCOUNTER 2025-02-11 08:30 | Day surgery (SDC) | payer MEDICAID, SELFPAY ==
[2025-02-10 08:21] VITALS: BMI 31.0
[2025-02-10 09:02] LABS: Basophils # (Auto) 0.1 Thou/mm3 (0.0-0.2); Basophils % (Auto) 1 % (0-2.5); Eosinophils # (Auto) 0.2 Thou/mm3 (0.0-0.5); Eosinophils % (Auto) 3 % (0-10); Hematocrit 50.3 % (41.0-53.0); Hemoglobin 16.7 g/dL (13.5-16.0); Immature Granulocytes % (Auto) 0 % (0-0); Immature Granulocytes Auto 0.01 Thou/mm3 (0.00-0.00); Lymphocytes % (Auto) 37 % (10-50); Mean Corpuscular HGB Conc 33.2 g/dl (31.0-37.0); Mean Corpuscular Hemoglobin 27.6 pg (25.0-35.0); Mean Corpuscular Volume 83 fL (80-100); Monocytes # (Auto) 0.7 Thou/mm3 (0.0-0.8); Monocytes % (Auto) 8 % (0-12); Neutrophils # (Auto) 4.1 Thou/mm3 (1.8-7.7); Neutrophils % (Auto) 51 % (37-80); Nucleated Red Blood Cell % 0 /100 WBC (0); Platelet Count 247 Thou/mm3 (140-440); RDW Standard Deviation 42.9 fL (35.1-43.9); Red Blood Count 6.04 Miln/mm3 (4.50-5.90)
[2025-02-10 09:08] LABS: INR 1.1 (0.9-1.3); Partial Thromboplastin Time 26.7 Seconds (22.0-36.0); Prothrombin Time 11.6 Seconds (9.0-12.2)
[2025-02-10 09:11] LABS: Alanine Aminotransferase 18 U/L (10-49); Albumin, Serum 4.6 gm/dL (3.5-5.0); Albumin/Globulin Ratio 1.8 (1.2-2.2); Alkaline Phosphatase 167 U/L (46-116); Anion Gap 9 (7-16); Aspartate Amino Transferase 19 U/L (0-34); BUN/Creatinine Ratio 8 Ratio (12-20); Bilirubin,Total 1.1 mg/dL (0.3-1.2); Blood Urea Nitrogen 7 mg/dL (9-23); Calcium 10.2 mg/dL (8.3-10.6); Calcium (Corrected) 10.2 mg/dL (8.5-10.1); Carbon Dioxide 27.5 mMol/L (20.0-31.0); Chloride 103 mMol/L (98-107); Creatinine (Component) 0.9 mg/dL (0.6-1.3); Globulin 2.6 gm/dL (2.3-3.5); Glucose 100 mg/dL (74-106); Osmolality,Calculated 275 (275-295); Potassium 4.2 mMol/L (3.4-5.1); Sodium 139 mMol/L (136-145); Total Protein 7.2 gm/dL (5.7-8.2); eGFR > 60 See Note
[2025-02-11] VITALS (16 sets, daily range): BP systolic 124–160; BP diastolic 64–89; PULSE 66–101; RESP 12–20; TEMP 36.1–36.9; O2SAT 95–100
[2025-02-11] MEDS: ACETAMINOPHEN 325 MG TABLET 650 MG PO (09:34)
[2025-02-11] MEDS: PREGABALIN 75 MG CAPSULE PO (09:35)
[2025-02-11] MEDS: MELOXICAM 7.5 MG TABLET PO (09:35)
--- NOTE | 2025-02-11 10:00 | CHAP ---
Prayed with patient concerning upcoming procedure.
--- NOTE | 2025-02-11 14:44 | ESOP_ITS ---
Date of Procedure 02/11/25 Pre Op Diagnosis left knee osteoarthritis Post Op Diagnosis left knee osteoarthritis Procedure left total knee replacement Findings full thickness cartilage loss and osteophytes Procedure Description Indication: The patient is a 50 year old who has a long history of left knee pain. X-rays show degenerative arthritis involving the knee. Over the past several years the patient has had increasing pain, progressive limitation in function. He has failed conservative measures including activity modification, physical therapy, injections, anti-inflammatories, and assistive devices. After a lengthy discussion of the risks and benefits, the patient presents now for total knee replacement. The nature and purpose of the total knee replacement, alternative method(s) of treatment, the material risks involved, and the possibility of complications were fully explained to the patient. The patient was told the most common risks and complications associated with a total knee replacement include, but are not limited to blood clots in the leg, fatal pulmonary embolism, dislocation of the prosthesis, intraoperative and postoperative fractures of the femur or tibia, infection, failure of the prosthesis or grafting materials, complications from anesthesia, reactions to blood transfusions, postoperative leg length inequality, instability of the knee replacement, nerve damage or injury, vascular injury, delayed wound healing, infections, other injury or even . In addition, there are risks associated with anesthesia given during this operation, temporary or permanent numbness on the skin lateral to the incision can be a complication unique to total knee surgery, and kneeling can be painful after knee replacement surgery. Also, the patient was told that after undergoing a total knee replacement there may still be pain or disability. We discussed with the patient that we will be using a robot-assisted technology. We discussed that there is a possibility of converting to manual instrumentation. The patient was informed that the success of this operation in part depends upon the mechanical devices which are going to be implanted and that these devices can fail or malfunction, and may need to be repaired or replaced and there are no guarantees as to the longevity of this device or its part and that it or its parts could fail prematurely. Finally, the patient was asked to follow completely and fully with all advice and recommended treatments, and that recovery and ultimate outcome are affected by their compliance with recommended treatment. Surgical technique: Patient was marked and consented in the pre-operative area. The patient was brought to the operating room and placed on the operating table in a supine position. Prior to positioning, a timeout procedure was performed between the surgeon, the anesthesiologist, and the nursing staff where the patient and the operative side were identified and confirmed. After adequate general anesthetic was obtained, the left lower extremity was prepped and draped in the usual sterile fashion. A weight based dose of Cefazolin were administered within 1 hour prior to incision. The robot was preregistered and calirated before the incision. The extremity was exsanguinated with an esmarch badge and tourniquet inflated to 250mmHg. A midline incision was made. A median parapatellar arthrotomy was made. The patella was subluxed laterally. A medial release was performed to expose the medial tibia. His femoral and tibial pins were placed through an intra incisional manner for both cases. Every effort was made to ensure that the distalmost aspect of the pin was hung in the second cortex. The arrays were then tightened several times to ensure that it was fixed for the remainder of the case. Both femoral and tibial checkpoints were then placed. We then went through the registration process of the bone. We then assessed the knee deformity and attempted to correct it. We also used the robot to aid in judging laxity in both extension and flexion. Final based on laxity and alignment we changed the preoperative assessment to obtain proper proper implant positioning and to correct deformity. Attention was then placed to the tibia. We made a tibial cut using the robot ensuring that both the MCL and the patella tendon were protected with retractors. We then went to the femur and made the posterior cut followed by the anterior cut and the anterior chamfer. The bone was then removed and we made a distal femur cut and a posterior chamfer cut. We verified all cuts. A trial reduction was performed with a size 6 femoral component and a size 5 keeled tibial component. The patella tracked centrally, and no lateral re tinacular release was necessary. The trial implants were removed. The arrays, pins, and checkpoints were all removed. We performed a verification that all pins were removed. The cut bone surfaces were lavaged. A size 6 left femoral component, a size 5 keeled tibial component were impacted into position. The knee was felt to be well balanced in the sagittal and coronal plane. The final 5x12 mm cruciate- substituting articular insert was impacted into the tibial tray. The knee was brought out to full extension, flexed up to 120 degrees. It was stable to varus and valgus stress and appropriately balanced in flexion and extension. The wounds were copiously irrigated following deflation of tourniquet. The medial retinaculum was reapproximated with #1 vicryl and quill. The subcutaneous tissues were closed with 0 and 2-0 interrupted Vicryl. The skin was closed with 3-0 Monofilament V loc suture. A sterile dressing was applied. The patient was transferred to a bed and brought to recovery in stable condition. The patient tolerated the procedure well. There were no intraoperative complications. Sponge and needle counts were correct times 2. As the attending surgeon, Kerry rob I was present and performed the entire operation. Grafts/Implants Size 6 CR Femur Size 5 Tibia 12mm poly CS Anesthesia spinal Implants diana Pathology / specimen None Pathology comment: none Estimated Blood Loss 150 Condition Stable Disposition same day Surgeon Clyde Plaza MD Surgical Staff Operation Date: 02/11/25 13:15 Case Staff Anesthesiologist: Moses Stanley RNfilm technician: Dorothy Lundy
--- NOTE | 2025-02-11 14:49 | XR_ITS ---
Examination: Right knee 2 views TECHNIQUE: AP lateral right knee 2 views Date and time: February 11, 2025 1527 hours INDICATIONS: Postop knee replacement. FINDINGS: Total right knee arthroplasty. Satisfactory alignment No fracture IMPRESSION: Total right knee replacement with satisfactory alignment
--- NOTE | 2025-02-11 15:05 | SUR.PHASEI ---
1504 Patient arrived to recovery resting comfortably in [facility], sleeping and able to arouse with verbal prompting, on oxygen 4L via nasal cannula, breathing unlabored, vital signs stable, dressing intact to left knee; prineo, gauze, telfa, webril, yuval wraps, no bleeding noted, patient has good circulation to left lower extremity; skin color is normal for patient and warm to touch, bilateral dorsalis pedis pulses present when palpated, report received from Sen HERRERA and Dr. Stanley
--- NOTE | 2025-02-11 15:33 | SUR.PHASEI ---
xray complete per MD order
[2025-02-11] MEDS: ONDANSETRON INJ 2 MG/ML INJ 2 ML 4 MG IVP (16:13)
[2025-02-11] MEDS: METOCLOPRAMIDE INJ 5 MG/ML VIAL 2 ML 10 MG IVP (16:26)
--- NOTE | 2025-02-11 16:32 | SUR.PHASEII ---
1632 Dr. Stanley at bedside, verbal order read-back received from Scopolamine patch for patients post op- nausea and vomiting, will place order in EMR and administer per MD order
[2025-02-11] MEDS: SCOPOLAMINE 1 MG TDSY TOP (16:45)
--- NOTE | 2025-02-11 18:04 | SUR.PHASEII ---
1806 patient cleared by physical therapist Ken to proceed with discharge
--- NOTE | 2025-02-11 18:20 | SUR.PHASEII ---
1814 Patient meets discharge criteria from recovery, awake and alert, breathing unlabored, vital signs stable, dressing intact; no bleeding noted, per patient his pain is tolerable, patient endorsed mild pain 2/10 after completing physical therapy, patient assisted with dressing into his clothing by his , discharge instructions given to patient, his and two daughter with the telephone fisher oyster [employer]aze ID#[id number] and patient also signed limited proficiency statement for his daughter to hot dipper for him, daughter signed discharge instructions. Patient given all his belongings prior to discharge, transported via wheelchair and left in a private vehicle. 1819 noted patients signed discharge paperwork accidentally sent home with patient
--- NOTE | 2025-02-17 13:25 | PD.ANESPROG ---
Documentation for date of: 02/17/25 POST ANESTHESIA NOTE: Patient had GETA and L adductor canal block for L TKA on 02/11/25. I just called and spoke with him on the phone via bandmill operator and he reported feeling sleepy post op for 3 hours and also PONV, which he reported he did not have last time. I educated him that drowsiness and PONV are common after general anesthesia and is not unusual and I educated him that if he has any surgery in future, he should discuss his PONV with his future anesthesia provider so it can be treated. His PONV this time was treated and he is documented to be awake on my PACU follow up. He had no further questions or concerns and was thankful. Moses Stanley MD Anesthesia Progress Note Progress Note Most recent Vital Signs: Last Vital Signs Temp 98.4 F 02/11/25 17:35 Pulse 92 02/11/25 18:05 Resp 14 02/11/25 18:05 BP 153/89 H 02/11/25 18:05 Pulse Ox 97 02/11/25 18:05 O2 Flow Rate 2 02/11/25 15:50
== END 2025-02-11 18:15 | disposition home or self-care (01) ==
PROVIDERS: Anesthesiology; PCP Family Medicine; Referring Provider Orthopaedic Surgery Adult Reconstructive Orthopaedic Surgery; Visit Provider Orthopaedic Surgery Adult Reconstructive Orthopaedic Surgery
PROC: (CPT 27447; principal; 2025-02-11 13:00)
DX: M17.12 Unilateral primary osteoarthritis, left knee (principal); M25.762 Osteophyte, left knee
CPT/HCPCS: 27447; 20985; 36415; 73560; 80053; 85025; 85610; 85730; 97162; A4217; C1713; C1776; J0131; J0690; J1100; J1171; J2250; J2405; J2704; J2710; J2765; J2795; J3010; J3490; J7030; J7999; A4648; A4649; A9270; J1596; J1805

== ENCOUNTER 2025-02-26 11:21 | Outpatient (AMB) | payer MEDICAID, SELFPAY ==
--- NOTE | 2025-02-26 11:27 | PD.ORTHCLVIS ---
Vital signs 02/26/25 11:28 Height 1.65 m Height Method Stated Weight 83.518 kg Weight Measurement Method Standing Scale BMI 30.7 BP 134/84 H Blood Pressure Source Automatic Cuff Blood Pressure Location Left Upper Arm Position Sitting Respiration 19 Pulse 81 Pulse Source Monitor Temp 96.9 F Temp Source Temporal Artery Scan Pulse Oximetry (%) 94 L Oxygen Delivery Method Room Air Med/Allergies Allergies & Medications Allergies No Known Drug Allergies Allergy (Verified 02/26/25 11:29) Medication Reconciliation telmisartan 40 mg tablet 40 mg PO QDAY 08/08/24 [History Confirmed 02/26/25] dapagliflozin propanediol 10 mg tablet (Farxiga) 10 mg PO QDAY 09/19/24 [History Confirmed 02/26/25] atorvastatin 10 mg tablet 10 mg PO QDAY 02/10/25 [History Confirmed 02/26/25] acetaminophen 500 mg tablet (Acetaminophen Extra Strength) 1,000 mg (2 x 500 mg) PO Q6H PRN pain #90 tabs 02/11/25 [Rx Confirmed 02/26/25] aspirin 81 mg tablet,delayed release 81 mg PO BID #60 tabs 02/11/25 [Rx Confirmed 02/26/25] doxycycline hyclate 100 mg tablet 100 mg PO BID #14 tabs 02/11/25 [Rx Confirmed 02/26/25] gabapentin 300 mg capsule 300 mg PO .qhs #30 caps 02/11/25 [Rx Confirmed 02/26/25] sennosides 8.6 mg-docusate sodium 50 mg tablet (Senna-S) 1 tab-cap PO QDAY #30 tabs 02/11/25 [Rx Confirmed 02/26/25] oxycodone 5 mg tablet 5 mg PO Q6H PRN pain #28 tabs 02/26/25 [Rx] Exam Exam Patient is in no acute distress and is cooperative with the examination today. Breathing is nonlabored. In no respiratory distress. Bilateral extremities were evaluated and demonstrates sensation intact to light touch. Palpable pedal pulses are present. No significant edema is present. Bilateral hips were examined. The patient has no pain with log roll of the hips. Internal rotation to 30 degrees and external rotation to 30 degrees is painless. Negative FADIR. The left knee was examined. The left knee is in [varus] alignment. Range of motion from [0-115] degrees. Knee is stable to varus and valgus as well as AP translation with <5mm. Patient has a [negative] McMurrays. There is [no] pain with patellofemoral compression and [no] crepitus noted. The knee is [tender] to palpation [medially]. Right knee incision is c/d/i. ROM is 0-100 Left knee incision is C/D/. Rom is 0-105 Assessment and Plan Problem List (1) Degenerative arthritis of knee, bilateral: Status: Acute Plan: Patient is a pleasant 49-year-old male with bilateral knee pain and bilateral knee arthritis. He is doing well s/p L TKA He will continue PT. We will see him back in 4 weeks Office Procedures GNS Level of Care Nursing/Assessment Patient Status: Established Patient Nursing Assessment/Reassesment: Medication Reconciliation, Update PMH in EMR and Vital Signs Coordination of Care: Complex Care and Chronic Disease 1-5, Education Complex Pt/Fam, Consent,records obtained, informed consent, 1 Ins Authorization, Results/Orders obtained and Staff clarify orders Special Needs: Language special needs Established Patient Charge Established Patient Point Assignment: 110 Established Patient Point Charge: EP Level 3 (80-115) MA Intake Visit Data Collection New Patient or Established: Established Patient (seen at [facility] within 3 years) Reason for Visit:: 2 week post op TKA Seen by Clinical Staff ONLY (RN/MA): No Verbal consent obtained for Telemed visit?: No Piercing Mill Operator Required: Yes PCP or OBGYN visit in last 3 months: Yes Hx Now: No Do You Feel Safe at Home: Yes Authorities Contacted: N/A Questionairres Past Medical History Past Medical History Have you ever been diagnosed with any of the following: Neurological Problems Seizures: No Cardiology Problems Hypercholesterolemia: Yes Congestive Heart Failure: No Edema: Yes (knees) Hypertension: Yes Respiratory Problems Chronic Obstructive Pulmonary Disease (COPD): No Smoking: No Smoking Exposure: No Stomache/Intestinal Problems Hepatitis: No Genital/Urinary Problems Renal Disease: No Musculoskeletal Problems Arthritis: Yes Fractures: Yes (right hand) Endocrine Problems Diabetes Mellitus Type 1: No Diabetes Mellitus Type 2: No Psychologic Problems Anxiety: Yes Other Problems Hospitalization: No Shingles: No Blood Transfusions: No Blood Transfusion Reaction: No Anesthesia Reactions: No Chicken Pox: Yes Measles: Yes Cancer: No Subjective Visit Visit for: follow up visit, post op #1 and knee Immunization / Flu Flu Vaccine in the Last 12 Months: No Flu Vaccine Exclusion Criteria: No Exclusion Criteria and Already Received History of Present Illness Chief complaint: 2 week post op Patient is doing well postop. He is doing well And is 2 weeks postop from his left total knee replacement. He is doing well Personal History Occupation: disabled Red flag PMH: none Pain Pain level (0-10): 3 Pain duration: comes and goes Pain location: inside (medial) Pain quality: dull and aching Pain timing: increases with activity Associated signs & symptoms: none Ambulatory data Ambulatory device: cane Treatments Improvement with previous injections: No Improvement with PT: No Improvement with NSAIDS: no Review of Systems Review of Systems: All systems negative unless otherwise noted in HPI.
[2025-02-26 11:28] VITALS: BP 134/84; PULSE 81; RESP 19; TEMP 36.1; O2SAT 94; BMI 30.7
== END 2025-02-26 11:31 | disposition home or self-care (01) ==
LOC: HODSRG 11:21
PROVIDERS: PCP Family Medicine; Referring Provider Family Medicine; Supervising Provider Orthopaedic Surgery Adult Reconstructive Orthopaedic Surgery; Visit Provider Orthopaedic Surgery Adult Reconstructive Orthopaedic Surgery
DX: M17.0 Bilateral primary osteoarthritis of knee (principal); M25.562 Pain in left knee; M25.561 Pain in right knee; Z96.652 Presence of left artificial knee joint; I10 Essential (primary) hypertension; E78.00 Pure hypercholesterolemia, unspecified
CPT/HCPCS: 99213; G0463

== ENCOUNTER 2025-03-26 10:54 | Outpatient (AMB) | payer MEDICAID, SELFPAY ==
--- NOTE | 2025-03-26 11:21 | PD.ORTHCLVIS ---
Vital signs 03/26/25 11:25 Height 1.65 m Height Method Stated Weight 85.786 kg Weight Measurement Method Standing Scale BMI 31.5 BP 124/82 Blood Pressure Source Automatic Cuff Blood Pressure Location Left Upper Arm Position Sitting Respiration 19 Pulse 82 Pulse Source Monitor Temp 97.8 F Temp Source Temporal Artery Scan Pulse Oximetry (%) 92 L Oxygen Delivery Method Room Air Med/Allergies Allergies & Medications Allergies No Known Drug Allergies Allergy (Verified 03/26/25 11:25) Medication Reconciliation telmisartan 40 mg tablet 40 mg PO QDAY 08/08/24 [History Confirmed 03/26/25] dapagliflozin propanediol 10 mg tablet (Farxiga) 10 mg PO QDAY 09/19/24 [History Confirmed 03/26/25] atorvastatin 10 mg tablet 10 mg PO QDAY 02/10/25 [History Confirmed 03/26/25] acetaminophen 500 mg tablet (Acetaminophen Extra Strength) 1,000 mg (2 x 500 mg) PO Q6H PRN pain #90 tabs 02/11/25 [Rx Confirmed 03/26/25] aspirin 81 mg tablet,delayed release 81 mg PO BID #60 tabs 02/11/25 [Rx Confirmed 03/26/25] doxycycline hyclate 100 mg tablet 100 mg PO BID #14 tabs 02/11/25 [Rx Confirmed 03/26/25] gabapentin 300 mg capsule 300 mg PO .qhs #30 caps 02/11/25 [Rx Confirmed 03/26/25] sennosides 8.6 mg-docusate sodium 50 mg tablet (Senna-S) 1 tab-cap PO QDAY #30 tabs 02/11/25 [Rx Confirmed 03/26/25] oxycodone 5 mg tablet 5 mg PO Q6H PRN pain #28 tabs 02/26/25 [Rx Confirmed 03/26/25] Exam Exam Patient is in no acute distress and is cooperative with the examination today. Breathing is nonlabored. In no respiratory distress. Bilateral extremities were evaluated and demonstrates sensation intact to light touch. Palpable pedal pulses are present. No significant edema is present. Bilateral hips were examined. The patient has no pain with log roll of the hips. Internal rotation to 30 degrees and external rotation to 30 degrees is painless. Negative FADIR. The left knee was examined. The left knee is in [varus] alignment. Range of motion from [0-115] degrees. Knee is stable to varus and valgus as well as AP translation with <5mm. Patient has a [negative] McMurrays. There is [no] pain with patellofemoral compression and [no] crepitus noted. The knee is [tender] to palpation [medially]. Right knee incision is c/d/i. ROM is 0-100 Left knee incision is C/D/. Rom is 0-105 Assessment and Plan Problem List (1) Degenerative arthritis of knee, bilateral: Status: Acute Plan: Patient is a pleasant 49-year-old male with bilateral knee pain and bilateral knee arthritis. He is doing well s/p L TKA He will continue PT. We will see him back in 6 weeks Office Procedures GNS Level of Care Nursing/Assessment Patient Status: Established Patient Nursing Assessment/Reassesment: Medication Reconciliation, Update PMH in EMR and Vital Signs Coordination of Care: Complex Care and Chronic Disease 1-5, Education Complex Pt/Fam, Consent,records obtained, informed consent, 1 Ins Authorization, Results/Orders obtained and Staff clarify orders Special Needs: Language special needs Established Patient Charge Established Patient Point Assignment: 110 Established Patient Point Charge: EP Level 3 (80-115) MA Intake Visit Data Collection New Patient or Established: Established Patient (seen at [facility] within 3 years) Reason for Visit:: 6 WEEK POST OP Seen by Clinical Staff ONLY (RN/MA): No Quality Control Lab Technician Required: Yes PCP or OBGYN visit in last 3 months: Yes Hx Now: No Do You Feel Safe at Home: Yes Authorities Contacted: N/A Questionairres Past Medical History Past Medical History Have you ever been diagnosed with any of the following: Neurological Problems Seizures: No Cardiology Problems Hypercholesterolemia: Yes Congestive Heart Failure: No Edema: Yes (knees) Hypertension: Yes Respiratory Problems Chronic Obstructive Pulmonary Disease (COPD): No Smoking: No Smoking Exposure: No Stomache/Intestinal Problems Hepatitis: No Genital/Urinary Problems Renal Disease: No Musculoskeletal Problems Arthritis: Yes Fractures: Yes (right hand) Endocrine Problems Diabetes Mellitus Type 1: No Diabetes Mellitus Type 2: No Psychologic Problems Anxiety: Yes Other Problems Hospitalization: No Shingles: No Blood Transfusions: No Blood Transfusion Reaction: No Anesthesia Reactions: No Chicken Pox: Yes Measles: Yes Cancer: No Subjective Visit Visit for: follow up visit, post op #2 and knee Immunization / Flu Flu Vaccine in the Last 12 Months: No Flu Vaccine Exclusion Criteria: No Exclusion Criteria History of Present Illness Chief complaint: 6 week post op Patient is doing well postop. He is doing well And is 6 weeks postop from his left total knee replacement. He is doing well Personal History Occupation: disabled Red flag PMH: none Pain Pain level (0-10): 3 Pain duration: comes and goes Pain location: inside (medial) Pain quality: dull and aching Pain timing: increases with activity Associated signs & symptoms: none Ambulatory data Ambulatory device: cane Treatments Improvement with previous injections: No Improvement with PT: No Improvement with NSAIDS: no Review of Systems Review of Systems: All systems negative unless otherwise noted in HPI.
[2025-03-26 11:25] VITALS: BP 124/82; PULSE 82; RESP 19; TEMP 36.6; O2SAT 92; BMI 31.5
== END 2025-03-26 11:24 | disposition home or self-care (01) ==
LOC: HODSRG 10:54
PROVIDERS: PCP Family Medicine; Referring Provider Family Medicine; Supervising Provider Orthopaedic Surgery Adult Reconstructive Orthopaedic Surgery; Visit Provider Orthopaedic Surgery Adult Reconstructive Orthopaedic Surgery
DX: M17.0 Bilateral primary osteoarthritis of knee (principal); M25.562 Pain in left knee; M25.561 Pain in right knee; Z96.652 Presence of left artificial knee joint
CPT/HCPCS: 99213; G0463

== ENCOUNTER → 2025-04-22 | Outpatient (CLI) | payer MEDICAID, SELFPAY ==
--- NOTE | 2025-04-22 10:48 | XR_ITS ---
Examination: Bilateral knees 2 views Right lateral knee left lateral knee 2 views Bilateral axial knees single view TECHNIQUE: Bilateral AP knees standing single view, bilateral PA knees standing single view flexion Standing right lateral knee left lateral knee 2 views Bilateral axial knees single view total 5 views Date and time: April 22, 2025 1056 hours INDICATIONS: Bilateral knee replacements, right September 22, 2024, left February 11, 2025. FINDINGS: Bilateral total knee arthroplasties. Satisfactory alignment. No loosening of the prosthetic components. No fractures No patellar dislocations IMPRESSION: Bilateral total knee arthroplasties with satisfactory alignment
== END | disposition home or self-care (01) ==
PROVIDERS: PCP Family Medicine; Referring Provider Orthopaedic Surgery Adult Reconstructive Orthopaedic Surgery; Visit Provider Orthopaedic Surgery Adult Reconstructive Orthopaedic Surgery
DX: M25.562 Pain in left knee (principal); M25.561 Pain in right knee; Z96.653 Presence of artificial knee joint, bilateral
CPT/HCPCS: 73564

== ENCOUNTER 2025-07-10 08:15 | Outpatient (AMB) | payer MEDICAID, SELFPAY ==
[2025-07-10 08:26] VITALS: BP 137/88; PULSE 69; RESP 16; TEMP 36.2; O2SAT 95; BMI 33.0
--- NOTE | 2025-07-10 08:26 | ORTHONT_ITS ---
Vital signs 07/10/25 08:26 Height 1.65 m Height Method Measured Weight 89.925 kg Weight Measurement Method Standing Scale BMI 33.0 BP 137/88 H Blood Pressure Source Automatic Cuff Blood Pressure Location Left Upper Arm Position Sitting Respiration 16 Pulse 69 Pulse Source Monitor Temp 97.2 F Temp Source Temporal Artery Scan Pulse Oximetry (%) 95 Oxygen Delivery Method Room Air Med/Allergies Allergies & Medications Allergies No Known Drug Allergies Allergy (Verified 07/10/25 08:30) Medication Reconciliation telmisartan 40 mg tablet 40 mg PO QDAY 08/08/24 [History Confirmed 07/10/25] dapagliflozin propanediol 10 mg tablet (Farxiga) 10 mg PO QDAY 09/19/24 [History Confirmed 07/10/25] atorvastatin 10 mg tablet 10 mg PO QDAY 02/10/25 [History Confirmed 07/10/25] acetaminophen 500 mg tablet (Acetaminophen Extra Strength) 1,000 mg (2 x 500 mg) PO Q6H PRN pain #90 tabs 02/11/25 [Rx Confirmed 07/10/25] aspirin 81 mg tablet,delayed release 81 mg PO BID #60 tabs 02/11/25 [Rx Confirme d 07/10/25] doxycycline hyclate 100 mg tablet 100 mg PO BID #14 tabs 02/11/25 [Rx Confirmed 07/10/25] gabapentin 300 mg capsule 300 mg PO .qhs #30 caps 02/11/25 [Rx Confirmed 07/10/25] sennosides 8.6 mg-docusate sodium 50 mg tablet (Senna-S) 1 tab-cap PO QDAY #30 tabs 02/11/25 [Rx Confirmed 07/10/25] oxycodone 5 mg tablet 5 mg PO Q6H PRN pain #28 tabs 02/26/25 [Rx Confirmed 07/10/25] Exam Exam Patient is in no acute distress and is cooperative with the examination today. Breathing is nonlabored. In no respiratory distress. Bilateral extremities were evaluated and demonstrates sensation intact to light touch. Palpable pedal pulses are present. No significant edema is present. Bilateral hips were examined. The patient has no pain with log roll of the hips. Internal rotation to 30 degrees and external rotation to 30 degrees is painless. Negative FADIR. The left knee was examined. The left knee is in [varus] alignment. Range of motion from [0-115] degrees. Knee is stable to varus and valgus as well as AP translation with <5mm. Patient has a [negative] [place]. There is [no] pain with patellofemoral compression and [no] crepitus noted. The knee is [tender] to palpation [medially]. Right knee incision is c/d/i. ROM is 0-100 Left knee incision is C/D/. Rom is 0-105. He feels stable varus valgus stress as well as AP translation The last x-rays from April which demonstrate cementless total knee replacements in good alignment and position Assessment and Plan Problem List (1) Degenerative arthritis of knee, bilateral: Status: Acute Plan: Patient is a pleasant 50-year-old male with bilateral knee pain and bilateral knee arthritis. He is doing well s/p L TKA. We obtained new x-rays which was the injury dated 07/10/2025. This demonstrates his total knee replacement in good alignment and position. There is no evidence of fracture. We have no limitations and we can see me for routine follow-up Office Procedures GNS Level of Care Nursing/Assessment Patient Status: Established Patient Nursing Assessment/Reassesment: Medication Reconciliation, Update PMH in EMR and Vital Signs Coordination of Care: Complex Care and Chronic Disease 1-5, Education Complex Pt/Fam, Consent,records obtained, informed consent, Results/Orders obtained and Staff clarify orders Special Needs: Language special needs Established Patient Charge Established Patient Point Assignment: 95 Established Patient Point Charge: EP Level 3 (80-115) MA Intake Visit Data Collection New Patient or Established: Established Patient (seen at [facility] within 3 years) Reason for Visit:: 3 MONTH F/U POST OP Seen by Clinical Staff ONLY (RN/MA): No Financial Cost Analyst Required: Yes PCP or OBGYN visit in last 3 months: Yes Hx Now: No Do You Feel Safe at Home: Yes Authorities Contacted: N/A Questionairres Past Medical History Past Medical History Have you ever been diagnosed with any of the following: Neurological Problems Seizures: No Cardiology Problems Hypercholesterolemia: Yes Congestive Heart Failure: No Edema: Yes (knees) Hypertension: Yes Respiratory Problems Chronic Obstructive Pulmonary Disease (COPD): No Smoking: No Smoking Exposure: No Stomache/Intestinal Problems Hepatitis: No Genital/Urinary Problems Renal Disease: No Musculoskeletal Problems Arthritis: Yes Fractures: Yes (right hand) Endocrine Problems Diabetes Mellitus Type 1: No Diabetes Mellitus Type 2: No Psychologic Problems Anxiety: Yes Other Problems Hospitalization: No Shingles: No Blood Transfusions: No Blood Transfusion Reaction: No Anesthesia Reactions: No Chicken Pox: Yes Measles: Yes Cancer: No Subjective Visit Visit for: follow up visit Immunization / Flu Flu Vaccine in the Last 12 Months: No Flu Vaccine Exclusion Criteria: No Exclusion Criteria History of Present Illness Chief complaint: 6 week post op Patient is doing well postop. He is doing well And is 5 months postop from his left total knee replacement. He is doing well. He reports that yesterday he had a twisting injury to his left knee. He reports that he might of heard a pop. Hew has been Able to walk. The pain is a 5 out of 10. Personal History Occupation: disabled Red flag PMH: none Pain Pain level (0-10): 3 Pain duration: comes and goes Pain location: inside (medial) Pain quality: dull and aching Pain timing: increases with activity Associated signs & symptoms: none Ambulatory data Ambulatory device: cane Treatments Improvement with previous injections: No Improvement with PT: No Improvement with NSAIDS: no Review of Systems Review of Systems: All systems negative unless otherwise noted in HPI.
--- NOTE | 2025-07-10 08:40 | XR_ITS ---
EXAMINATION: Bilateral AP knees standing single view, left knee PA lateral 3 views TECHNIQUE:: Bilateral AP knees single view standing Left knee PA flexion standing, standing lateral, XR left knee 3 views total 4 views Date and time: July 10, 2025, 0846 hours INDICATIONS: Left knee pain beginning yesterday, surgery to the left knee February 11, 2025 FINDINGS: Bilateral total knee arthroplasties. Satisfactory alignment No loosening of the prosthetic components No left patellar dislocation IMPRESSION: Bilateral total knee arthroplasties with satisfactory alignment
== END 2025-07-10 09:13 | disposition home or self-care (01) ==
LOC: HODSRG 08:15
PROVIDERS: PCP Family Medicine; Referring Provider Family Medicine; Supervising Provider Orthopaedic Surgery Adult Reconstructive Orthopaedic Surgery; Visit Provider Orthopaedic Surgery Adult Reconstructive Orthopaedic Surgery
DX: Z47.1 Aftercare following joint replacement surgery (principal); Z96.652 Presence of left artificial knee joint; S89.92XA Unspecified injury of left lower leg, initial encounter; X50.1XXA Overexertion from prolonged static or awkward postures, initial encounter; M25.562 Pain in left knee; M25.561 Pain in right knee; M17.11 Unilateral primary osteoarthritis, right knee; I10 Essential (primary) hypertension
CPT/HCPCS: 73564; 99213; G0463